=== PATIENT | female | born 1950 | race Caucasian/White ===

== ENCOUNTER 2024-06-23 06:40 | Day surgery (SDC) | payer OTHER ==
[2024-06-23] MEDS: Ringers Lactate 1,000 ML IV ONE (07:45)
[2024-06-23 07:50] LABS: Sqamous Epithelial <5 /HPF (None Seen); Transitional Epithelial <5 /HPF (None Seen); Urine Bacteria None Seen /HPF (<20); Urine Bilirubin NEGATIVE (Negative); Urine Blood 3+ (OVER) (Negative); Urine Clarity Extremely Turbid (Clear); Urine Color Light-Orange (Yellow); Urine Culture Reflex Order REFLEXED; Urine Glucose NEGATIVE (Negative); Urine Ketones NEGATIVE (Negative); Urine Microscopic Reflex YN ORDER UMIC; Urine Nitrite NEGATIVE (Negative); Urine Protein 2+ (Negative); Urine RBC >50 /HPF (None Seen); Urine Urobilinogen Normal (Normal); Urine WBC 20-50 /HPF (<5); Urine Yeast (Budding) Occasional /HPF (None Seen)
[2024-06-23] MEDS ORDERED: ONDANSETRON 4 MG/2 ML VIAL ONE (07:57)
[2024-06-23] MEDS ORDERED: LIDOCAINE 2% MPF 5 ML VIAL ONE (07:57)
[2024-06-23] MEDS ORDERED: FENTANYL CITR 100 MCG/2 ML ONE (07:58)
[2024-06-23] MEDS ORDERED: propofoL 200 MG/20 ML VIAL IV ONE (07:58)
[2024-06-23] MEDS ORDERED: LIDOCAINE HCL/EPINEPHRINE 20 ML MDV ONE (07:58)
[2024-06-23] MEDS ORDERED: MIDAZOLAM HCL 2 MG/2 ML INJ ONE (07:58)
[2024-06-23 08:45] LABS: Absolute Basophils 0.1 K/uL (0-0.5); Absolute Eosinophils 0.2 K/uL (0-0.5); Absolute Lymphocytes (CBC) 1.6 K/uL (0.7-4.9); Absolute Monocytes 0.5 K/uL (0.1-1.3); Absolute Neutrophil 4.6 K/uL (1.8-8.0); Basophils % 1.3 % (0-1.3); Eosinophils % 3.4 % (0-4.4); Hematocrit 40.7 % (36.0-45.0); Hemoglobin 13.1 g/dL (12.0-15.0); Lymphocytes % 23.2 % (15.3-44.8); MCHC 32.3 g/dL (32.0-36.0); MCV 86.9 fL (80-100); MPV 7.4 fL (7.6-11.3); Monocytes % 6.7 % (3.3-12.3); Neutrophils % 65.4 % (41.7-73.7); Platelets 252 thou/uL (152-406); RBC Red Blood Cell Count 4.68 M/uL (3.86-4.86); Red Cell Distribution Width 14.7 % (12.1-15.2)
[2024-06-23 09:00] LABS: Anion Gap 7.8 mEq/L (5.0-15.0); Potassium 3.8 mEq/L (3.5-5.1)
[2024-06-23] MEDS: CEFAZOLIN SODIUM 1 GM/VIAL ONE (09:25)
[2024-06-23] MEDS: KETOROLAC 30 MG/ML INJ ONE (09:51)
[2024-06-23 10:05] VITALS: TEMP 97.1; O2SAT 98
[2024-06-23 10:28] VITALS: BP 132/70
--- NOTE | 2024-06-23 20:14 | OP ---
Date of Procedure: 06/23/2024 Surgeon: Fe Paz MD Subcontract Manager: No assistance. Preoperative Diagnoses: Endometrial polyps and uterine prolapse. Postoperative Diagnoses: Endometrial polyps and uterine prolapse. Procedures Performed: Operative hysteroscopy with MyoSure and polypectomy, D and C. Anesthesia: General with LMA. Specimens: Endometrial polyps and curettings. Complications: No complications. Estimated Blood Loss: Minimal. Fluid Deficit: Less than 200 of normal saline. Patient's Condition: Stable. Findings: A smaller right cornual end fundal polyp that was irregular and a posterior wall sessile p olyp encompassing the entire posterior wall of the uterus all the way down to the internal os. Uteri ne prolapse at point C, +4 with traction on the cervix. Adequate amount of sample was taken from bot h the polyps and most of the polyps were removed. Indication: A 74-year-old female presented with uterine prolapse. On history and testing, she was f ound to have hematuria. A CT urogram was ordered as well as a cystoscopy performed and a transvagina l ultrasound. Transvaginal ultrasound showed thickened endometrium with possible polyps and the blad dennise was negative for any tumors; however, there was gross hematuria from the right ureteric orifice. On the CT urogram, there is a 5 cm right renal mass. Office hysteroscopy was performed to evaluate the endometrial cavity and 2 polyps were noted, which w ere difficult to be sampled in the office; and therefore, the patient was consented to rule out endom etrial atypia or malignancy and removed the polyps as best as feasible with the main goal as adequate sampling. Description Of Procedure: After informed consent was re-verified in the preoperative area today, she was brought back and placed in a supine fashion on the operating table. General anesthesia was give n with LMA and placed in a dorsal lithotomy position using Aung stirrups. The lower abdomen and ext remities were draped. Prep was done and the vagina on the labia. Two Allis clamps were used on the cervix and did not need a speculum. The cervix was dilated to 16-[place] and a MyoSure LITE device wa s primed and then inserted under direct visualization through the cervical canal into the uterine cav ity. The MyoSure LITE device was then taken after the outflow was removed. Then, endometrial polyp at the top was first removed completely and then the posterior wall polyp was removed. The posterior wall polyp was thick and there was still remaining tissue. This did not appear to be something that I could completely remove smoothly. Most of it was removed. There was very minimal bleeding. Ther e was good hemostasis. Endometrium was also sampled as best as possible. The rest of the endometria l cavity had very thin endometrium. Both tubal ostia were visualized. Scope was removed. The patie nt was cleaned off. Fluid deficit less than 200. Samples were sent out for pathology. After she wa s recovered and all the counts were correct, she was taken back to the recovery room in a stable cond ition. She will follow up in a week with us for pathology results and then with MD Davila for eval uation of her kidney mass. EBL less than 5 mL. CHAO/SAM Voice ID: [id number] Report ID: [id number]
--- NOTE | 2024-06-24 11:02 | EKG ---
Test Date: 2024-06-23 Test Time: 07:28:46 Orientation And Mobility Specialist: DARRELL MEASUREMENT RESULTS: Intervals: Rate: 70 VA: 102 QRSD: 72 QT: 414 QTc: 447 [place]: P: 42 VA: 102 QRS: 36 T: 34 INTERPRETIVE STATEMENTS: Sinus rhythm with short VA Otherwise normal ECG No previous ECG available for comparison Electronically Signed On 06-24-24 10:58:40 CDT by Parth Alvarado
== END 2024-06-23 10:58 | disposition home or self-care (01) ==
LOC: OR 06:40
PROVIDERS: ATTEND Obstetrics & Gynecology
PROC: 0UDB8ZX Extraction of Endometrium, Via Natural or Artificial Opening Endoscopic, Diagnostic (ICD-10-PCS; principal; 2024-06-23 08:30)
DX: N84.0 Polyp of corpus uteri (principal); N81.4 Uterovaginal prolapse, unspecified
CPT/HCPCS: 93005; 87088; 85025; 81001; 87086; 80048; 36415; 86900; 86850; 86901; 88305; 58558; C1782; J2704; J2003; J2250; J3010; J2405; J7120; J0690